=== PATIENT | female | born 1930 | race Caucasian/White ===

== ENCOUNTER 2019-11-30 06:13 | Observation (INO) ==
[2019-11-30] MEDS ORDERED: Aspirin 81 MG TAB.CHEW PO ONE (06:33)
[2019-11-30 06:42] LABS: Basophils # 0.1 K/mcL (0.0-0.2); Basophils % 0.9 %; Eosinophils # 0.1 K/mcL (0.0-0.6); Eosinophils % 0.9 %; Hemoglobin 15.2 g/dL (11.5-15.4); Immature Granulocytes % 0.2 % (0-4); Lymphocytes # 1.4 K/mcL (0.6-4.6); Lymphocytes % 26.3 %; Mean Corpuscular HGB Conc 33.8 g/dL (31.6-35.5); Mean Corpuscular Hemoglobin 30.7 pg (28.0-33.3); Mean Corpuscular Volume 90.9 fL (83.0-100.0); Monocytes # 0.5 K/mcL (0.0-1.3); Monocytes % 8.6 %; Neutrophils # 3.4 K/mcL (1.6-8.9); Platelet Count 243 K/mcL (140-400); Red Blood Count 4.95 M/mcL (3.82-4.97); Red Cell Distribution Width 13.4 % (11.5-14.5); Segmented Neutrophils % 63.1 %; White Blood Count 5.4 K/mcL (4.3-11.1)
[2019-11-30 06:47] LABS: Prothrombin Time 11.5 Seconds (9.4-12.1)
[2019-11-30 07:10] LABS: Alanine Aminotransferase 12 Units/L (7-52); Albumin 4.8 g/dL (3.5-5.7); Albumin/Globulin Ratio 1.7 (1.1-2.2); Alkaline Phosphatase 79 Units/L (34-104); Aspartate Amino Transferase 21 Units/L (13-39); BUN/Creatinine Ratio 25 (6-26); Bilirubin,Direct 0.2 mg/dL (0.0-0.2); Bilirubin,Indirect 1.2 mg/dL (0.0-1.0); Bilirubin,Total 1.4 mg/dL (0.3-1.0); Blood Urea Nitrogen 26 mg/dL (8-23); Calcium 9.6 mg/dL (8.6-10.3); Carbon Dioxide 25 mEq/L (23-29); Chloride 103 mEq/L (98-107); Globulin 2.8 g/dL (2.4-3.5); Glucose 111 mg/dL (70-105); Lipase 15 Units/L (11-82); Osmolality,Calculated 293 (280-300); Potassium 3.7 mEq/L (3.5-5.1); Sodium 139 mEq/L (136-145); Total Protein 7.6 g/dL (6.4-8.9); Troponin I < 0.03 ng/mL (< 0.04); eGFR For African Americans > 60 (> 60); eGFR For Non-African Americans 50 (> 60)
[2019-11-30] MEDS ORDERED: Naloxone 0.4 MG/ML INJ IVP PRN (07:57)
[2019-11-30 08:56] LABS: Bilirubin,Urine Negative (Negative); Blood,Urine Negative (Negative); Clarity,Urine Clear (Clear); Color,Urine Colorless (Yellow); Glucose,Urine (UA) Normal (Normal); Ketones,Urine Trace mg/dL (Negative); Leukocyte Esterase,Urine Negative (Negative); Nitrite,Urine Negative (Negative); PH,Urine 7.5 pH Units (5.0-8.0); Protein,Urine Negative (Neg-Trace); Specific Gravity,Urine 1.009 (1.010-1.025); Urobilinogen,Urine Normal (Normal)
[2019-11-30] MEDS ORDERED: amLODIPine 5 MG TABLET PO SCH (09:00)
[2019-11-30] MEDS ORDERED: Pantoprazole 40 MG VIAL IVP ONE (09:18)
[2019-11-30] MEDS: Cholecalciferol (D-3) 1,000 UNIT (25MCG) TABLET PO SCH (11:25)
[2019-11-30] MEDS ORDERED: *HR* LORazepam 0.5 MG TABLET PO ONE (21:21)
[2019-11-30] MEDS: Perphenazine 2 MG TABLET PO SCH (22:17)
[2019-12-01] MEDS ORDERED: Regadenoson 0.4 MG/5 ML SYRINGE IVP ONE (07:06)
[2019-12-01] MEDS ORDERED: amLODIPine 5 MG TABLET PO SCH (09:00)
[2019-12-01] MEDS: Cholecalciferol (D-3) 1,000 UNIT (25MCG) TABLET PO SCH (09:18)
[2019-12-01 11:07] VITALS: BP 105/65
[2019-12-01] MEDS: Perphenazine 2 MG TABLET PO SCH (12:40)
== END 2019-12-01 13:23 | disposition home or self-care (01) ==
LOC: EMEROOARM 06:13 → 3BNU 06:13
PROVIDERS: ADMIT Internal Medicine; ATTEND Internal Medicine